=== PATIENT | female | born 1965 | race Caucasian/White ===

== ENCOUNTER 2016-08-31 20:12 | Emergency (ER) | payer OTHER ==
[~2016-08-31 20:12] MED LIST: ALPRAZOLAM PO; NORCO 5/325 TAB1 TAB PO
== END 2016-08-31 20:14 | disposition left against medical advice (07) ==
LOC: SED 20:12
DX: Z53.21 Procedure and treatment not carried out due to patient leaving prior to being seen by health care provider (principal)
CPT/HCPCS: J1885

== ENCOUNTER 2016-08-31 22:23 | Emergency (ER) | payer OTHER | END 2016-09-01 00:14 | disposition home or self-care (01) | LOC: SED 22:23 | DX: R51 Headache (principal); F41.9 Anxiety disorder, unspecified; Z88.2 Allergy status to sulfonamides | CPT/HCPCS: 96372; 99283 ==